=== PATIENT | female | born 1935 | race Caucasian/White ===

== ENCOUNTER → 2016-12-25 | Outpatient (CLI) | payer MEDICARE, OTHER ==
[~2016-12-25] MED LIST: ASPIRIN PO; ATENOLOL PO; BACTRIM DS TABL1 TA1 PO; BACTRIM DS TABL1 TAB; BENADRYL PO; CELEBREX PO; CLONIDINE PO; COLACE PO; COLESTIPOL HCL1 G PO; COUMADIN PO; DARVOCET-N 1001 TAB PO; DETROL; DETROL LA PO; DIGITEK PO; DIOVAN HCT 160-1 TAB; DIOVAN PO; DIOVAN320 MG PO; HYDROCODON-ACE1 EACH PO; IBUPROFEN; KLOR-CON PO; LASIX20 MG PO; LOPRESSOR; LOPRESSOR PO; MIRTAZAPINE7.5 MG PO; NORVASC PO; PHENERGAN; PLAVIX PO; PRADAXA150 MG PO; PRILOSEC; PRILOSEC PO; TOPROL XL PO; ZANTAC PO; ZOCOR20 MG PO; ZOLOFT PO
--- NOTE | ~2016-12-25 | MY11 ---
[facility] A Service of [facility] RADIOLOGY TEXT RESULTS PATIENT: LARRY BLAIR LOCATION: [facility] : 34 UNIT #: [id number] AGE: [address]: Tra Martinez MD SEX: F ORDER DR: [id number] [id number] [place], [place] [address] [id number] O MR#: [id number] Acc #: [id number] NAME: LARRY BLAIR : 1935 SEX: F STUDY DATE/TIME: 12/25/2016 8:53 UNIT: [facility] ROOM: STUDY DESCRIPTION: MY Mammogram Screening Dig Ton Attending Physician: Tra Martinez M.D. Ordering Physician: Tra Martinez M.D. Primary Care Physician: Tra Martinez M.D. MEDICAL IMAGING REPORT This report is preliminary unless electronic signature is present EXAM Bilateral digital screening mammogram with CAD device 12/25/2016 HISTORY Routine screening. FINDINGS Digital imaging of each breast was completed utilizing a two-view examination of each breast in craniocaudal and mediolateral-oblique projections. Review and interpretation of digital mammograms include a second review in conjunction with FDA-approved CAD device. There is a normal parenchymal presentation bilaterally consistent with the patient's age. There are no breast masses imaged and no parenchymal asymmetry is visualized. There are no suspicious microcalcifications and I see no focal architectural disturbance. IMPRESSION Negative screening digital mammogram. One-year followup recommended. Patients over the age of 40 are entered into a reminder system with target due date for the next mammogram. A result letter will also be sent to the patient. BIRADS: 1 Negative Dictated by... Willie Mario M.D. THIS IS AN ELECTRONICALLY VERIFIED REPORT [facility] A Service [facility] RADIOLOGY TEXT RESULTS PATIENT: LARRY BLAIR LOCATION: [facility] : 34 UNIT #: [id number] AGE: [address]: Tra Martinez MD SEX: F ORDER DR: Willie Mario M.D. at 12/26/2016 8:27 AM FLORA/raj TD: 12/25/2016 10:19 JOB #: [id number] MEDICAL IMAGING REPORT Page 1 of 1 COPY
== END | disposition home or self-care (01) ==
LOC: CWCC 08:28
DX: Z12.31 Encounter for screening mammogram for malignant neoplasm of breast (principal)
CPT/HCPCS: G0202

== ENCOUNTER 2017-05-19 10:45 | Emergency (ER) | payer MEDICARE, OTHER ==
[~2017-05-19] VITALS: Ht 160 cm; Wt 70.3 kg
--- NOTE | ~2017-05-19 | CT17 ---
[facility] A Service of [facility] & [facility] RADIOLOGY TEXT RESULTS PATIENT: LARRY BLAIR LOCATION: [facility] : 34 UNIT #: [id number] AGE: [address]: Cesar Keenan MD SEX: F ORDER DR: [id number] [facility] [address] [place], [place] [address] [id number] E MR#: [id number] Acc #: [id number] NAME: LARRY BLAIR : 1935 SEX: F STUDY DATE/TIME: 05/19/2017 15:13 UNIT: [facility] ROOM: STUDY DESCRIPTION: CT Angio Head Attending Physician: Cesar Keenan M.D. Ordering Physician: Cesar Keenan M.D. Primary Care Physician: Primary Care Physician No MEDICAL IMAGING REPORT This report is preliminary unless electronic signature is present EXAM CT angiogram of the head and neck with contrast dated 05/19/[address] head without contrast dated 05/19/2017, CT head and neck angiogram dated 03/19/2013. HISTORY Dysarthria since last night. Aphasic, weakness for 2 days. Slurred speech. FINDINGS CT angiogram of the head and neck were obtained with IV contrast in the axial plane followed by reformats. Curved reformats of the major neck arteries were performed. Reformats of the [place] was performed in all 3 planes along with obtaining surface rendered images of the [place] and 3-D tumbling MIP images. This CT examination was performed with one or more of the following radiation dose reduction techniques: automatic exposure control, adjustment of mA and/or kV according to patient size, and iterative reconstruction. NECK: Three-vessel aortic arch is seen. There is expected caliber of the bilateral common, internal and external carotid arteries. There is a medially deviated course of the right common carotid artery and the right internal carotid artery causing mass effect on the adjacent hypopharynx and oropharynx. They must not be misconstrued for submucosal mass but endoscopy could visualize it through the aerodigestive tract. No hemodynamically flow-limiting significant stenosis in bilateral internal carotid artery bulbs per NASCET criteria. Bilateral external carotid arteries are within normal limits. Tortuous course of bilateral vertebral arteries are seen but they are codominant and do not demonstrate any significant abnormality. [facility] A Service of [facility] & [facility] RADIOLOGY TEXT RESULTS PATIENT: LARRY BLAIR LOCATION: [facility] : 34 UNIT #: [id number] AGE: [address]: Cesar Keenan MD SEX: F ORDER DR: HEAD: Bilateral intracranial internal carotid arteries, anterior cerebral arteries and middle cerebral arteries are within normal limits. No significant stenosis, aneurysm or AVM. Basilar artery, bilateral posterior cerebral arteries, superior cerebellar arteries and vertebral arteries are within normal limits. ACOM and left PCOM are present. IMPRESSION 1. No hemodynamically flow-limiting significant stenosis in bilateral internal carotid artery bulbs per NASCET criteria. 2. No significant stenosis, aneurysm or AVM in the head or neck. Dictated by... Sarkis Hughes M.D. THIS IS AN ELECTRONICALLY VERIFIED REPORT Sarkis Hughes M.D. at 05/22/2017 9:15 AM CPR/juan TD: 05/20/2017 09:02 JOB #: [id number] MEDICAL IMAGING REPORT Page 1 of 1 COPY
--- NOTE | ~2017-05-19 | CT23 ---
[facility] A Service of [facility] & [facility] RADIOLOGY TEXT RESULTS PATIENT: LARRY BLAIR LOCATION: [facility] : 34 UNIT #: [id number] AGE: [address]: Cesar Keenan MD SEX: F ORDER DR: [id number] [facility] [address] [place], [place] [address] [id number] E MR#: [id number] Acc #: [id number] NAME: LARRY BLAIR : 1935 SEX: F STUDY DATE/TIME: 05/19/2017 15:13 UNIT: [facility] ROOM: STUDY DESCRIPTION: CT Angio Neck Attending Physician: Cesar Keenan M.D. Ordering Physician: Cesar Keenan M.D. Primary Care Physician: Primary Care Physician No MEDICAL IMAGING REPORT This report is preliminary unless electronic signature is present EXAM CT angiogram of the neck with contrast dated 05/19/2017 HISTORY Dysarthria since last night. Aphasic, weakness for 2 days. Slurred speech. FINDINGS Please see CT angiogram of the head for results. Dictated by... Sarkis Hughes M.D. THIS IS AN ELECTRONICALLY VERIFIED REPORT Sarkis Hughes M.D. at 05/22/2017 9:16 AM CPR/juan TD: 05/20/2017 09:04 JOB #: [id number] MEDICAL IMAGING REPORT Page 1 of 1 COPY
--- NOTE | ~2017-05-19 | EKG ---
PATIENT: LARRY BLAIR UNIT #: [id number] Ventricular Rate: 72 BPM Atrial Rate: 84 BPM QRS Duration: 82 ms Q-T Interval: 404 ms QTC Calculation(Bezet): 442 ms Calculated R Matthews: -17 degrees Calculated T Matthews: 77 degrees Diagnosis Line: Atrial fibrillation with occasional Diagnosis Line: ventricular-paced complexes Diagnosis Line: Voltage criteria for left ventricular hypertrophy Diagnosis Line: Nonspecific ST and T wave abnormality Diagnosis Line: Abnormal ECG Diagnosis Line: When compared with ECG of 11-SEP-2016 12:14, Diagnosis Line: Rhythm now atrial fibrillation Diagnosis Line: Confirmed by RAHEEL LEAL MD ([id number]) on Diagnosis Line: 05/20/2017 5:00:44 PM INTERPRETING MD: FAVIO
--- NOTE | ~2017-05-19 | CT71 ---
[facility] A Service of [facility] & [facility] RADIOLOGY TEXT RESULTS PATIENT: LARRY BLAIR LOCATION: [facility] : 34 UNIT #: [id number] AGE: [address]: Cesar Keenan MD SEX: F ORDER DR: [id number] [facility] [address] [place] [address] [place], [place] [address] [id number] E MR#: [id number] Acc #: [id number] NAME: LARRY BLAIR : 1935 SEX: F STUDY DATE/TIME: 05/19/2017 11:55 UNIT: [facility] ROOM: STUDY DESCRIPTION: CT Head Wo Contrast Attending Physician: Cesar Keenan M.D. Ordering Physician: Cesar Keenan M.D. Primary Care Physician: Primary Care Physician No MEDICAL IMAGING REPORT This report is preliminary unless electronic signature is present EXAM CT head without IV contrast COMPARISON May 24, 2013 INDICATION 81-year-old female with weakness for 2 days and slurred speech since this morning. Bilateral arm pain. TECHNIQUE This CT exam was performed with one or more of the following radiation dose reduction techniques: automatic exposure control, adjustment of mA and/or kV according to patient size, and iterative reconstruction. FINDINGS Linear metallic density is again seen at the level of the right middle ear. There has been partial resection of both mastoid bones and there is soft tissue density versus fluid at both external ear canals and at both middle ears. These findings are stable from May 2013 and thought to be chronic. There has been prior left maxillary antrectomy as well. There is mucosal thickening of the left frontal sinus and ethmoid air cells. No acute fractures or suspicious osseous lesions. Osed-yn-rxtyddmg cerebral volume loss for patient age. There is grossly stable from 2012. No abnormal extraaxial fluid collection or mass effect. No acute intracranial hemorrhage. 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 There also appears to be a focal chronic small vessel ischemic change which is new at the anterior limb of the right internal capsule. Small vessel ischemic changes have also progressed in the bifrontal and biparietal periventricular white matter, now with chronic appearance. No convincing evidence of acute ischemia. STS. [facility] A Service of [facility] & [facility] RADIOLOGY TEXT RESULTS PATIENT: LARRY BLAIR LOCATION: [facility] : 34 UNIT #: [id number] AGE: [address]: Cesar Keenan MD SEX: F ORDER DR: IMPRESSION 1. No acute intracranial abnormality. Progression of lixv-xy-oijgbaul chronic small vessel ischemic changes. No convincing evidence of acute ischemia. 2. Stable qzoj-dt-msywnmba cerebral volume loss. 3. Stable postsurgical changes of the temporal bones bilaterally with stable fluid and/or soft tissue density in both external and internal ears. 4. Chronic paranasal sinus disease. Dictated by... Ja Garcia M.D. THIS IS AN ELECTRONICALLY VERIFIED REPORT Ja Garcia M.D. at 05/28/2017 12:41 AM Brittany TD: 05/20/2017 07:18 JOB #: [id number] MEDICAL IMAGING REPORT Page 1 of 1 COPY
--- NOTE | ~2017-05-19 | CR72 ---
[facility] A Service of [facility] RADIOLOGY TEXT RESULTS PATIENT: LARRY BLAIR LOCATION: [facility] : 34 UNIT #: [id number] AGE: [address]: Cesar Keenan MD SEX: F ORDER DR: [id number] [facility] [address] [place], [place] [address] [id number] E MR#: [id number] Acc #: [id number] NAME: LARRY BLAIR : 1935 SEX: F STUDY DATE/TIME: 05/19/2017 11:28 UNIT: [facility] ROOM: STUDY DESCRIPTION: CR Chest Single View Portable Attending Physician: Cesar Keenan M.D. Ordering Physician: Cesar Keenan M.D. Primary Care Physician: Primary Care Physician No MEDICAL IMAGING REPORT This report is preliminary unless electronic signature is present EXAM Portable AP view of the chest COMPARISON September 11, 2016; July 01, 2015 and May 24, 2013. INDICATION 81-year-old female with cough and chest congestion for 2 days. Elevated blood pressure today. FINDINGS Dual lead left chest pacemaker device appears grossly stable. The heart size is likely within normal limits for portable technique. There is hazy attenuation over the left lower chest which is very similar to July 01, 2015 and could reflect prominent breast shadow. Left basilar pneumonia, atelectasis and/or pleural effusion cannot be excluded. IMPRESSION Questionable increased left basilar opacity versus soft tissue and cardiac shadow. Left basilar atelectasis, pneumonia or pleural effusion cannot entirely be excluded. Clinical correlation recommended. Dictated by... Ja Garcia M.D. THIS IS AN ELECTRONICALLY VERIFIED REPORT Ja Garcia M.D. at 05/28/2017 10:00 PM Brittany TD: 05/20/2017 07:06 JOB #: [id number] MEDICAL IMAGING REPORT [facility] A Service [facility] RADIOLOGY TEXT RESULTS PATIENT: LARRY BLAIR LOCATION: [facility] : 34 UNIT #: [id number] AGE: [address]: Cesar Keenan MD SEX: F ORDER DR: Page 1 of 1 COPY
[2017-05-19 11:26] LABS: POC - TROPONIN <0.05 ng/mL (<=0.05)
[2017-05-19 11:59] LABS: BASOPHIL% 0.8 % (0-2.5); EOSINOPHIL# 0.1 X10e3 (0-0.7); EOSINOPHIL% 1.1 % (0.0-7.0); HEMATOCRIT 42.6 % (35.0-45.0); HEMOGLOBIN 14.1 gm/dL (12.0-16.0); LYMPHOCYTE# 2.3 X10e3 (1.0-3.5); LYMPHOCYTE% 44.4 % (17.0-45.0); MEAN CELL VOLUME 85.4 FL (83-96); MEAN CORPUSCULAR HEMOGLOBIN 28.3 PG (28-34); MEAN CORPUSCULAR HGB CONC 33.1 g/dL (30-36); MEAN PLATELET VOLUME 8.7 FL (6.5-11.5); MONOCYTE# 0.5 X10e3 (0-1.0); MONOCYTE% 9.3 % (3.0-12.0); NEUTROPHIL# 2.3 X10e3 (1.5-7.1); NEUTROPHIL% 44.4 % (40-75); PLATELET COUNT 247 X10e3 (140-420); RED BLOOD COUNT 4.99 X10e (3.90-5.30); WHITE BLOOD COUNT 5.2 X10e3 (4.0-10.5)
[2017-05-19 12:02] LABS: DIFF IND NO
[2017-05-19 12:13] LABS: INR 1.1; PARTIAL THROMBOPLASTIN TIME 28.9 SECONDS (23.5-31.3); PROTHROMBIN TIME (PATIENT) 11.6 SECONDS (10.0-11.7)
[2017-05-19 12:22] LABS: ALBUMIN SERUM 4.1 g/dL (3.5-5.0); BILIRUBIN, DIRECT 0.1 mg/dL (0.0-0.2); BILIRUBIN,INDIRECT 0.7 mg/dL (0.0-0.9); BILIRUBIN,TOTAL 0.8 mg/dL (0.2-2.0); BUN/CREATININE RATIO 21.25; CALCIUM SERUM 9.9 mg/dL (8.4-10.2); CREATININE SERUM 0.8 mg/dL (0.6-1.4); GLOM FILT RATE Estimated 68.7 mL/min (>60); POTASSIUM 3.4 mmol/L (3.5-5.1); PROTEIN TOTAL SERUM 7.8 g/dL (6.0-8.3)
== END 2017-05-19 16:10 | disposition home or self-care (01) ==
LOC: CED 10:45
PROVIDERS: Emergency Medicine
DX: R47.81 Slurred speech (principal); Z79.899 Other long term (current) drug therapy; Z88.5 Allergy status to narcotic agent
CPT/HCPCS: 36415; 70450; 70496; 70498; 71010; 80048; 80076; 82553; 82947; 84484; 85025; 85610; 85730; 93005; 99285; Q9967